=== PATIENT | female | born 1935 | race Caucasian/White ===

== ENCOUNTER 2017-01-18 18:00 | Observation (INO) | payer MEDICARE ==
[~2017-01-18] VITALS: Ht 154.9 cm; Wt 72.6 kg
[~2017-01-18 18:00] MED LIST: ANTIVERT12.5 MG PO; BACTRIM DS1 TA1 PO; CALCIUM600 M1 PO; CITRACAL + D CA1 TAB PO; COQ-10100 MG PO; CYMBALTA60 M1 PO; CYMBALTA60 MG PO; FOSAMAX70 MG; GABAPENTIN800 MG; GYNE-LOTRIMIN21 GM VG; LEVOXYL50 MCG; LEVOXYL50 MCG PO; LYRICA200 M1 PO; MULTIVITAMINS1 EAC6 PO; NEURONTIN300 MG PO; NEURONTIN800 MG; NORCO 5/325 TAB1 TAB PO; NORCO 5/3251 TAB PO; OCUVITE EYE +1 EACH PO; SENIOR VITAMIN PO; SYNTHROID50 MC1 PO; TYLENOL500 MG; XANAX0.25 M1 PO; XANAX0.25 MG; XANAX0.25 MG PO; ZOFRAN ODT4 MG/UDTAB PO
[2017-01-18 19:41] LABS: BASO % 0.6 % (0-2); BASO ABSOLUTE COUNT 0.1 tho/cmm (0.0-0.2); EOS % 1.8 % (0-7); EOSINOPHIL ABSOLUTE COUNT 0.1 tho/cmm (0.0-0.7); HCT-HEMATOCRIT 39.4 % (34.0-49.0); HGB-HEMOGLOBIN 13.5 gm/dl (12.0-15.5); IMMATURE GRANULOCYTES ABSOLUTE 0.01 tho/cmm (0-0.03); IMMATURE GRANULOCYTES PERCENT 0.1 % (0-0.3); LYMPH % 37.7 % (20-45); MCHC MEAN CORPUSCULAR HGB CONC 34.3 % (32.0-36.0); MCV (MEAN CELL VOLUME) 90.6 fl (82.0-96.0); MEAN PLATELET VOLUME 9.3 cmc (9.4-12.4); MONOCYTE ABSOLUTE COUNT 0.9 tho/cmm (0.0-1.2); NEUTROPHIL ABSOLUTE COUNT 3.8 tho/cmm (1.6-8.0); NEUTROPHIL-AUTOMATED 3.8 tho/cmm (1.6-8.0); NEUTROPHILS % 48.8 % (40-80); PLATELET COUNT 339 tho/cmm (150-450); RED BLOOD COUNT 4.35 mil/cmm (4.00-5.20); RED CELL DISTRIBUTION WIDTH 13.4 % (12.4-16.4); WHITE BLOOD COUNT 7.9 tho/cmm (4.0-10.0)
[2017-01-18 19:45] LABS: ANION GAP 14 mmol/L (0-20); BLOOD UREA NITROGEN 13 mg/dl (6-24); CALCIUM 8.9 mg/dl (8.5-10.5); CARBON DIOXIDE-VENOUS 25 mmol/L (22-32); CHLORIDE 99 mmol/l (96-110); CREATININE 0.72 mg/dl (0.50-1.10); GLUCOSE 97 mg/dL (70-110); POTASSIUM 3.8 mmol/L (3.7-5.1); SODIUM 134 mmol/L (135-145); eGFR VALUE FOR BLACK >90 mL/Min
[2017-01-19] MEDS ORDERED: NITROGLYCERIN0.4 M2 SL (10:35)
[2017-01-19] MEDS ORDERED: PRILOSEC OTC20 M1 PO (10:36)
[2017-01-19] MEDS ORDERED: ASPIRIN EC81 MG PO (10:37)
== END 2017-01-19 11:40 ==
LOC: EDMED 18:00 → EMR2 22:08 → PCUB 23:24
PROVIDERS: Emergency Medicine; ADMIT Internal Medicine Cardiovascular Disease
DX: R07.9 Chest pain, unspecified (principal); E78.5 Hyperlipidemia, unspecified; E03.9 Hypothyroidism, unspecified; Z79.899 Other long term (current) drug therapy; Z88.8 Allergy status to other drugs, medicaments and biological substances; Z91.048 Other nonmedicinal substance allergy status; Z87.891 Personal history of nicotine dependence; Z82.49 Family history of ischemic heart disease and other diseases of the circulatory system; Z82.3 Family history of stroke; Z83.3 Family history of diabetes mellitus; Z90.49 Acquired absence of other specified parts of digestive tract; Z90.710 Acquired absence of both cervix and uterus; Z98.49 Cataract extraction status, unspecified eye; Z96.659 Presence of unspecified artificial knee joint; Z98.890 Other specified postprocedural states
CPT/HCPCS: A9500; C8929; G0378